=== PATIENT | male | born 2000 | race Two or more races ===

== ENCOUNTER 2024-01-07 11:35 | Emergency (ER) | payer MEDICAID ==
[~2024-01-07] VITALS: Ht 177.8 cm; Wt 81.6 kg
[2024-01-07] MEDS ORDERED: TDAP [DIPH/PERTUSSIS/TET] 0.5 ML VIAL IM ONE (12:39)
[2024-01-07] MEDS: TDAP [DIPH/PERTUSSIS/TET] 0.5 ML VIAL IM ONE (12:44)
[2024-01-07] MEDS ORDERED: IBUP-1957 PO (13:00)
[2024-01-07 13:13] VITALS: BP 136/69; TEMP 98.6; O2SAT 99
== END 2024-01-07 13:13 | disposition home or self-care (01) ==
LOC: ER 11:40
DX: S80.812A Abrasion, left lower leg, initial encounter (principal); S80.811A Abrasion, right lower leg, initial encounter; S60.512A Abrasion of left hand, initial encounter; S60.511A Abrasion of right hand, initial encounter; F17.200 Nicotine dependence, unspecified, uncomplicated; V23.49XA Other motorcycle driver injured in collision with car, pick-up truck or van in traffic accident, initial encounter; Y93.89 Activity, other specified; Y92.488 Other paved roadways as the place of occurrence of the external cause; Y99.8 Other external cause status
CPT/HCPCS: 71045-TC; 73030-TC; 73590-TC; 90715